=== PATIENT | male | born 1945 | race Caucasian/White ===

== ENCOUNTER 2021-10-29 17:50 | Emergency (ER) | payer MEDICARE, BC ==
[~2021-10-29] VITALS: Ht 177.8 cm; Wt 82.2 kg
[~2021-10-29 17:50] MED LIST: ALBU6.7H9 INH; BUDE180A INH; CEPH250T PO; CYCL-1 PO; SERAVENT
[2021-10-29] MEDS ORDERED: BEBTELOVIMAB 175 MG/2 ML VIAL IV ONE (19:00)
[2021-10-29 20:11] VITALS: BP 143/79
== END 2021-10-29 20:13 | disposition home or self-care (01) ==
LOC: ER 17:51
DX: U07.1 COVID-19 (principal); J45.909 Unspecified asthma, uncomplicated; I51.9 Heart disease, unspecified; E11.9 Type 2 diabetes mellitus without complications; Z90.49 Acquired absence of other specified parts of digestive tract; Z88.6 Allergy status to analgesic agent; Z79.899 Other long term (current) drug therapy
CPT/HCPCS: 99283; M0222; Q0222

== ENCOUNTER 2022-05-07 08:09 | Emergency (ER) | payer MEDICARE, BC ==
[~2022-05-07] VITALS: Ht 177.8 cm; Wt 79.5 kg
[~2022-05-07 08:09] MED LIST changes: +ALBU6.7H14 INH; -ALBU6.7H9 INH
[2022-05-07 08:10] VITALS: BP 136/92
== END 2022-05-07 10:49 | disposition left against medical advice (07) ==
LOC: ER 08:09
DX: R22.0 Localized swelling, mass and lump, head (principal); Z53.21 Procedure and treatment not carried out due to patient leaving prior to being seen by health care provider

== ENCOUNTER 2023-03-31 08:49 | Emergency (ER) | payer MEDICARE, BC ==
[~2023-03-31] VITALS: Ht 177.8 cm; Wt 79.7 kg
[2023-03-31] MEDS ORDERED: TETanus/Pertussis (Acell)/Diphther VAC/PF (Tdap-Adult) 0.5ml syringe IMVAC ONE (09:05)
[2023-03-31] MEDS ORDERED: LIDOcaine 1% 30ml preserv. free vial IJ ONE (09:10)
[2023-03-31 09:58] VITALS: PULSE 57; RESP 16; TEMP 98.8; O2SAT 97
== END 2023-03-31 10:16 | disposition home or self-care (01) ==
LOC: ER 08:50
DX: S61.217A Laceration without foreign body of left little finger without damage to nail, initial encounter (principal); I48.91 Unspecified atrial fibrillation; J45.909 Unspecified asthma, uncomplicated; E11.9 Type 2 diabetes mellitus without complications; Z85.828 Personal history of other malignant neoplasm of skin; Z88.6 Allergy status to analgesic agent; Z79.2 Long term (current) use of antibiotics; Z79.899 Other long term (current) drug therapy; W26.0XXA Contact with knife, initial encounter; Y93.89 Activity, other specified; Y92.89 Other specified places as the place of occurrence of the external cause; Y99.8 Other external cause status
CPT/HCPCS: 12001; 90471; 90715; 99283; A6258; A6402

== ENCOUNTER 2023-04-09 06:14 | Emergency (ER) | payer MEDICARE, BC ==
[~2023-04-09] VITALS: Ht 177.8 cm; Wt 80.9 kg
[2023-04-09 08:03] VITALS: BP 156/81; PULSE 61; RESP 15; TEMP 98.2; O2SAT 98
== END 2023-04-09 09:34 | disposition home or self-care (01) ==
LOC: ER 06:14
DX: S61.217D Laceration without foreign body of left little finger without damage to nail, subsequent encounter (principal); X58.XXXD Exposure to other specified factors, subsequent encounter
CPT/HCPCS: 99281